=== PATIENT | male | born 1965 | race Two or more races ===

== ENCOUNTER 2020-03-28 18:23 | Emergency (ER) | payer SELFPAY ==
[~2020-03-28] VITALS: Ht 175.3 cm; Wt 68.5 kg
[2020-03-28 18:29] VITALS: BP 126/90
--- NOTE | 2020-03-28 18:30 | NUR ---
[id number], from home,c/o left leg cramps while doing yard work outside his house 8/10 pain scale, diaphoretic. On room air, breathing evenly and unlabored. connected to the monitor and pulse ox. kept comfortable, will continue to monitor accordingly.
[2020-03-28 18:47] LABS: BASOPHILS # (AUTO) 0.1 /CMM (0.0-0.2); BASOPHILS % (AUTO) 0.8 % (0.0-2.0); EOSINOPHILS % (AUTO) 0.2 % (0.0-6.0); HEMATOCRIT 43 % (39-51); LYMPHOCYTES # (AUTO) 1.8 /CMM (0.8-4.8); LYMPHOCYTES % (AUTO) 15.3 % (20.0-44.0); MEAN CORPUSCULAR HGB CONC 33 g/dl (31.0-36.0); MEAN CORPUSCULAR VOLUME 88 fL (80-96); MONOCYTES % (AUTO) 8.5 % (2.0-12.0); NEUTROPHILS % (AUTO) 75.2 % (43.0-81.0); PLATELET COUNT (AUTO) 410 /CMM (150-450); RED BLOOD CELL COUNT(AUTO) 4.85 MIL/uL (4.5-6.0)
[2020-03-28] MEDS ORDERED: LORAZEPAM INJ 2 MG/ML VIAL ONE (18:53)
[2020-03-28 18:55] LABS: CALCIUM, SERUM 10.3 mg/dL (8.5-10.1); CREATININE 1.2 mg/dL (0.6-1.3); POTASSIUM 4.4 mmol/L (3.5-5.1)
--- NOTE | 2020-03-28 18:59 | NUR ---
patient refused ativan and want's to sign AMA. MD notified and made aware.
[2020-03-28] MEDS ORDERED: LORAZEPAM INJ 2 MG/ML VIAL IV ONE (19:00)
[2020-03-28] MEDS ORDERED: IV NS 0.9% 1,000 ML BAG IV ONE (19:00)
--- NOTE | 2020-03-28 19:00 | NUR ---
wasted Ativan 1mg IV with Wendy DE JESUS.
[2020-03-28 19:01] LABS: ALBUMIN 4.6 g/dL (3.4-5.0); BILIRUBIN,DIRECT 0.1 mg/dL (0.0-0.2); BILIRUBIN,TOTAL 0.3 mg/dL (0.2-1.0); TOTAL PROTEIN, SERUM 8.7 g/dL (6.4-8.2)
--- NOTE | 2020-03-28 19:01 | NUR ---
Patient does not wish to proceed with medical care recommended by Dorcas ARGUETA. Patient given information related to possible complications, up to and including , which could occur as a result of leaving the hospital at this time. Patient verbalizes understanding of risks involved due to leaving against medical advice. Patient has refused to sign AMA form cosigned with another RN.
[2020-03-28] MEDS ORDERED: HYDROMORPHONE 1 MG/1 ML DISP.SYRIN ONE (19:44)
[2020-03-28] MEDS ORDERED: HYDROMORPHONE 1 MG/1 ML DISP.SYRIN IM ONE (20:00)
--- NOTE | 2020-03-28 20:38 | NUR ---
PT IS MEDICALLY STABLE FOR D/C. DISCHARGE INSTRUCTIONS AND F/U W/ PCP WERE EXPLAINED TO THE PT INLENGHT. PT VERY DISRESPECTFUL AND RUDE TO STAFF AND PHYSICIAN. REFUSING TO SIGN THE DISCHARGE PAPERS.
--- NOTE | 2020-03-28 21:47 | NUR ---
Patient discharged to home in stable condition. Written and verbal after care instructions given. Patient verbalizes understanding of instruction. Pt was assisted to his friend's car via WC.
== END 2020-03-28 19:04 | disposition left against medical advice (07) ==
LOC: ER 18:23
DX: R25.2 Cramp and spasm (principal); G89.29 Other chronic pain; M79.662 Pain in left lower leg; Z76.5 Malingerer [conscious simulation]; F41.9 Anxiety disorder, unspecified
CPT/HCPCS: 36415; 80048; 80076; 82550; 85025; 96360; 96372; 99283; J1170; J2060; J7030